=== PATIENT | male | born 1995 | race Caucasian/White ===

== ENCOUNTER 2025-03-02 12:44 | Outpatient (CLI) | payer OTHER ==
[2025-03-02 13:45] LABS: URINE APPEARANCE Clear; URINE BILIRRUBIN Negative (NEGATIVE); URINE BLOOD Negative; URINE COLOR Yellow; URINE GLUCOSE Negative (NEGATIVE); URINE KETONE Trace (NEGATIVE); URINE LEUKOCYTE Negative; URINE NITRATE Negative; URINE PROTEIN Negative (NEGATIVE); URINE UROBILINOGEN 1.0 E.U./dl
[2025-03-02 13:48] LABS: URINE BACTERIA 16.7 uL (0.0-1933); URINE EPITHELIAL CELLS 11.2 uL (0.0-38.8); URINE WBC 2.4 uL (0.0-23.2)
[2025-03-02 13:49] LABS: URINE CAST 0.00 uL (0.0-1.40); URINE RBC 1.0 uL (0.0-20.8)
== END 2025-03-02 12:45 | disposition home or self-care (01) ==
LOC: LAB 12:44
DX: N39.0 Urinary tract infection, site not specified (principal)

== ENCOUNTER → 2025-03-02 | Outpatient (CLI) | payer OTHER | END | disposition home or self-care (01) | LOC: RAD 12:04 → EDBD 12:04 | DX: R05.9 Cough, unspecified (principal) ==